=== PATIENT | male | born 1995 | race Caucasian/White ===

== ENCOUNTER → 2017-07-18 | Outpatient (CLI) | payer BC ==
[~2017-07-18] MED LIST: INSPMPNVLG INJ
[2017-07-18 12:24] LABS: HEMOGLOBIN A1C 7.4 % (4.5-5.6)
[2017-07-18 12:46] LABS: ALBUMIN 4.2 gm/dl (3.4-5.0); ALT/SGPT 20 U/L (12-78); AST/SGOT 14 U/L (15-37); BLOOD UREA NITROGEN 17 mg/dl (7-18); CALCIUM 9.1 mg/dl (8.5-10.1); CARBON DIOXIDE 30 mmol/L (21-32); CREATININE 1.02 mg/dl (0.60-1.40); GLUCOSE 87 mg/dl (70-99); POTASSIUM 3.3 mmol/L (3.5-5.1); SODIUM 136 mmol/L (136-145)
[2017-07-18 12:57] LABS: ALKALINE PHOSPHATASE 86 U/L (45-117); CHOLESTEROL 145 mg/dl (0-200); LDL CHOLESTEROL CALCULATED 64 mg/dl; TOTAL PROTEIN 7.1 gm/dl (6.4-8.2)
== END | disposition home or self-care (01) ==
LOC: C.LAB1850 10:08
PROVIDERS: ATTEND Physician Assistant
DX: E10.9 Type 1 diabetes mellitus without complications (principal)